=== PATIENT | male | born 1980 | race Two or more races ===

== ENCOUNTER 2018-01-23 07:31 | Emergency (ER) | payer BC, MEDICAID ==
[2018-01-23] MEDS ORDERED: cefTRIAXone 1,000 MG in Lidocaine 1% 4 ML IM ONE (07:38)
--- NOTE | 2018-01-23 07:41 | EDM.PDOC ---
ED HPI GENERAL MEDICAL PROBLEM - General Chief Complaint: Genitourinary Problem Stated Complaint: BLOOD IN URINE Time Seen by Provider: 01/23/18 07:36 - History of Present Illness INITIAL COMMENTS - FREE TEXT/NARRATIVE: HISTORY AND PHYSICAL: History of present illness: Patient 37-year-old male presents with a concern of dysuria and hematuria he states he had this 1 day states is no significant chance of STD and he's had none prior he denies back pain nausea vomiting fever chills. Review of systems: As per history of present illness and below otherwise all systems reviewed and negative. Past medical history: As per history of present illness and as reviewed below otherwise noncontributory. Surgical history: As per history of present illness and as reviewed below otherwise noncontributory. Social history: No reported history of drug or alcohol abuse. Family history: As per history of present illness and as reviewed below otherwise noncontributory. Physical exam: HEENT: Atraumatic, normocephalic, pupils reactive, negative for conjunctival pallor or scleral icterus, mucous membranes moist, throat clear, neck supple, nontender, trachea midline. Lungs: Clear to auscultation, breath sounds equal bilaterally, chest nontender. Heart: S1S2, regular, negative for clicks, rubs, or JVD. Abdomen: Soft, nondistended, nontender. Negative for masses or hepatosplenomegaly. Negative for costovertebral tenderness. Pelvis: Stable nontender. Genitourinary: Deferred. Rectal: Deferred. Extremities: Atraumatic, negative for cords or calf pain. Neurovascular unremarkable. Neuro: Awake, alert, oriented. Cranial nerves II through XII unremarkable. Cerebellum unremarkable. Motor and sensory unremarkable throughout. Exam nonfocal. Diagnostics: UA urine culture and sensitivity GC chlamydia Therapeutics: Rocephin 1 g IM Impression: #1 UTI Definitive disposition and diagnosis as appropriate pending reevaluation and review of above. urinary Pain Score (Numeric/FACES): 10 - Related Data Allergies Allergy/AdvReac Type Severity Reaction Status Date / Time Penicillins Allergy Other Verified 01/23/18 07:34 Home Meds: Home Meds . [No Known Home Meds] 01/23/18 [History] ED ROS GENERAL - Review of Systems Review Of Systems: ROS reveals no pertinent complaints other than HPI. ED EXAM, GENERAL - Physical Exam Exam: See Below (See dictation) Course - Vital Signs Last Recorded V/S: Last Vital Signs Temp 35.8 C 01/23/18 07:35 Pulse 109 H 01/23/18 07:35 Resp 20 01/23/18 07:35 BP 172/120 H 01/23/18 07:35 Pulse Ox 97 01/23/18 07:35 - Orders/Labs/Meds Orders: Active Orders 24 hr Category Date Time Status CHLAMYDIA AND GONORRHEA BY TMA Stat Lab 01/23/18 07:37 Ordered CULTURE URINE [RM] Stat Lab 01/23/18 07:37 Ordered UA W/MICROSCOPIC [URIN] Stat Lab 01/23/18 07:37 Ordered Meds: Medications Discontinued Medications Generic Name Dose Route Start Last Admin Trade Name Freq PRN Reason Stop Dose Admin Ceftriaxone Sodium 1,000 mg/ 4 mls @ 4 mls/sec 01/23/18 07:38 Lidocaine HCl IM 01/23/18 07:39 ONETIME ONE Departure - Departure Time of Disposition: 07:41 Disposition: Home, Self-Care 01 Condition: Good Clinical Impression: UTI, Urinary tract infectious disease - Discharge Information Additional Instructions: The following information is given to patients seen in the emergency department who are being discharged to home. This information is to outline your options for follow-up care. We provide all patients seen in our emergency department with a follow-up referral. The need for follow-up, as well as the timing and circumstances, are variable depending upon the specifics of your emergency department visit. If you don't have a primary care physician on staff, we will provide you with a referral. We always advise you to contact your personal physician following an emergency department visit to inform them of the circumstance of the visit and for follow-up with them and/or the need for any referrals to a consulting specialist. The emergency department will also refer you to a specialist when appropriate. This referral assures that you have the opportunity for followup care with a specialist. All of these measure are taken in an effort to provide you with optimal care, which includes your followup. Under all circumstances we always encourage you to contact your private physician who remains a resource for coordinating your care. When calling for followup care, please make the office aware that this follow-up is from your recent emergency room visit. If for any reason you are refused follow-up, please contact the [facility] emergency department at and asked to speak to the emergency department charge nurse. Doxycycline as prescribed although primary medical doctor call to schedule appointment return as needed as discussed - My Orders Last 24 Hours: My Active Orders 01/23/18 07:37 CHLAMYDIA AND GONORRHEA BY TMA Stat CULTURE URINE [RM] Stat UA W/MICROSCOPIC [URIN] Stat - Assessment/Plan Last 24 Hours: My Active Orders 01/23/18 07:37 CHLAMYDIA AND GONORRHEA BY TMA Stat CULTURE URINE [RM] Stat UA W/MICROSCOPIC [URIN] Stat
[2018-01-23] MEDS ORDERED: Lidocaine 1% 4 ML ONE (07:50)
== END 2018-01-23 08:46 | disposition home or self-care (01) ==
LOC: MW.ED 07:31
DX: N39.0 Urinary tract infection, site not specified (principal); Z88.0 Allergy status to penicillin
CPT/HCPCS: 81001; 87086; 87491; 87591; 96372; 99283; J0696; 87088; 87186; 99282

== ENCOUNTER 2018-03-21 17:59 | Emergency (ER) | payer OTHER, MEDICAID ==
--- NOTE | 2018-03-21 18:26 | EDM.PDOC ---
ED HPI GENERAL MEDICAL PROBLEM - General Chief Complaint: Upper Extremity Injury/Pain Stated Complaint: PAIN RT ARM Time Seen by Provider: 03/21/18 18:00 Source of Information: Reports: Patient History Limitations: Reports: No Limitations - History of Present Illness INITIAL COMMENTS - FREE TEXT/NARRATIVE: HISTORY AND PHYSICAL: History of present illness: Patient is a 37-year-old male who is brought to the emergency room with complaints of right elbow pain. He states while at work today they were adjusting some heavy equipment when a pin slipped and his body fell into the equipment, hitting his elbow. Since that time he has increased pain with full extension and flexion of the right elbow. He denies any numbness or tingling. Denies any previous injury or trauma to the affected extremity. Review of systems: As per history of present illness and below otherwise all systems reviewed and negative. Past medical history: As per history of present illness and as reviewed below otherwise noncontributory. Surgical history: As per history of present illness and as reviewed below otherwise noncontributory. Social history: No reported history of drug or alcohol abuse. Family history: As per history of present illness and as reviewed below otherwise noncontributory. Physical exam: General: Well-developed and well-nourished 37-year-old male. Alert and oriented. Nontoxic appearing and in no acute distress. HEENT: Atraumatic, normocephalic, pupils equal and reactive bilaterally, negative for conjunctival pallor or scleral icterus, mucous membranes moist, throat clear, neck supple, nontender, trachea midline. No drooling or trismus noted. No meningeal signs Lungs: Clear to auscultation, breath sounds equal bilaterally, chest nontender. Heart: S1S2, regular rate and rhythm without overt murmur Abdomen: Soft, nondistended, obese, nontender. Negative for masses. Negative for costovertebral tenderness. Pelvis: Stable nontender. Genitourinary: Deferred. Rectal: Deferred. Skin: Intact, warm, dry. No lesions or rashes noted. Extremities: Moves all extremities per self without deficits. Does have pain with palpation to the right posterior elbow and with complete extension of the right upper extremity. Strong radial pulses bilaterally. Capillary refill is less than 3 seconds. Strong and equal grasps to bilateral extremities. negative for cords or calf pain. Neurovascular unremarkable. Neuro: Awake, alert, oriented. Cranial nerves II through XII unremarkable. Cerebellum unremarkable. Motor and sensory unremarkable throughout. Exam nonfocal. Notes: X-ray shows moderate soft tissue swelling in the right mid and proximal forearm with increased density in the subcutaneous tissues likely related to the soft tissue injury. There is no evidence of acute fracture, dislocation or effusion. We discussed the limitations of x-ray and that we are unable to identify if there is ligament or tendon involvement at this time. We'll put him in a sling and give him some medication for pain. Encouraged him to follow-up with the orthopedic provider next week. He voices understanding and is agreeable to plan of care. He denies any further questions at this time. Diagnostics: Xray Therapeutics: Toradol, Sling Impression: Right Elbow Injury Plan: 1. Rest, ice, elevate the affected extremity. Please use the sling as directed. 2. Tylenol and/or ibuprofen as needed for pain management. A limited amount of [place] has been given to you for moderate to severe pain. This medication may cause drowsiness so do not take it while driving or needing to be functioning outside the house. 3. As we discussed, please follow-up with the orthopedic provider next week. Return to the ED as needed and as discussed. Definitive disposition and diagnosis as appropriate pending reevaluation and review of above. Onset: Today Duration: Hour(s): Location: Reports: Upper Extremity, Right Right Elbow Pain Score (Numeric/FACES): 3 - Related Data Allergies Allergy/AdvReac Type Severity Reaction Status Date / Time Penicillins Allergy Cannot Verified 03/21/18 18:12 Remember Home Meds: Home Meds . [No Known Home Meds] 01/23/18 [History] Past Medical History - Past Health History Medical/Surgical History: Denies Medical/Surgical History Social & Family History - Family History Family Medical History: Noncontributory - Tobacco Use Smoking Status *Q: Current Every Day Smoker Years of Tobacco use: 27 Packs/Tins Daily: 0.4 - Caffeine Use Caffeine Use: Reports: Energy Drinks - Recreational Drug Use Recreational Drug Use: No Review of Systems - Review of Systems Review Of Systems: ROS reveals no pertinent complaints other than HPI. ED EXAM, GENERAL - Physical Exam Exam: See Below (See dictation) Course - Vital Signs Last Recorded V/S: Last Vital Signs Temp 97.7 F 03/21/18 18:07 Pulse 90 03/21/18 18:07 Resp 16 03/21/18 18:07 BP 127/76 03/21/18 18:07 Pulse Ox 95 03/21/18 18:07 - Orders/Labs/Meds Orders: Active Orders 24 hr Category Date Time Status Elbow Min 3V Rt [CR] Stat Exams 03/21/18 18:20 Ordered DME for Discharge [COMM] Stat Oth 03/21/18 18:27 Ordered Meds: Medications Discontinued Medications Generic Name Dose Route Start Last Admin Trade Name Frekathia PRN Reason Stop Dose Admin Ketorolac Tromethamine 60 mg 03/21/18 18:27 Toradol IM 03/21/18 18:28 ONETIME ONE Departure - Departure Time of Disposition: 19:06 Disposition: Home, Self-Care 01 Clinical Impression: Injury of right elbow Qualifiers: Encounter type: initial encounter Qualified Code(s): S59.901A - Unspecified injury of right elbow, initial encounter - Discharge Information Referrals: PCP,None [Primary Care Provider] - Forms: ED Department Discharge Additional Instructions: The following information is given to patients seen in the emergency department who are being discharged to home. This information is to outline your options for follow-up care. We provide all patients seen in our emergency department with a follow-up referral. The need for follow-up, as well as the timing and circumstances, are variable depending upon the specifics of your emergency department visit. If you don't have a primary care physician on staff, we will provide you with a referral. We always advise you to contact your personal physician following an emergency department visit to inform them of the circumstance of the visit and for follow-up with them and/or the need for any referrals to a consulting specialist. The emergency department will also refer you to a specialist when appropriate. This referral assures that you have the opportunity for follow-up care with a specialist. All of these measure are taken in an effort to provide you with optimal care, which includes your follow-up. Under all circumstances we always encourage you to contact your private physician who remains a resource for coordinating your care. When calling for follow-up care, please make the office aware that this follow-up is from your recent emergency room visit. If for any reason you are refused follow-up, please contact the Emergency Department at and asked to speak to the emergency department charge nurse. [facility] [address], [place] [address] [facility] - [facility] Professional Building [address], [address] [place] [address] 1. Rest, ice, elevate the affected extremity. Please use the sling as directed. 2. Tylenol and/or ibuprofen as needed for pain management. A limited amount of [place] has been given to you for moderate to severe pain. This medication may cause drowsiness so do not take it while driving or needing to be functioning outside the house. 3. As we discussed, please follow-up with the orthopedic provider next week. Return to the ED as needed and as discussed. - My Orders Last 24 Hours: My Active Orders 03/21/18 18:20 Elbow Min 3V Rt [CR] Stat 03/21/18 18:27 DME for Discharge [COMM] Stat - Assessment/Plan Last 24 Hours: My Active Orders 03/21/18 18:20 Elbow Min 3V Rt [CR] Stat 03/21/18 18:27 DME for Discharge [COMM] Stat
[2018-03-21] MEDS ORDERED: Ketorolac 60 MG/2 ML SDV IM ONE (18:27)
--- NOTE | 2018-03-22 14:25 | CR ---
EXAM DATE: 03/21/18 PATIENT'S AGE: 37 Patient: GAEL BINGHAM Facility: [place], [place] Site . Site : 1980 Study: XRay Extremity Right elbow [id number]/[id number] 6:49:45 PM Ordering Physician: Doctor Garcia Final Report: INDICATION: Injury. TECHNIQUE: Three views right elbow. FINDINGS: Moderate soft tissue swelling in the right mid and proximal forearm with increased density in subcutaneous tissues likely related to soft tissue injury. Right palpable and visualized forearm otherwise negative without acute fracture , dislocation, or effusion. Dictated by Dean Glass MD @ Mar 21 2018 6:58PM (Electronic Signature) Report Signed by Proxy. ERIKA
== END 2018-03-21 19:20 | disposition home or self-care (01) ==
LOC: MW.ED 17:59
DX: S59.901A Unspecified injury of right elbow, initial encounter (principal); F17.210 Nicotine dependence, cigarettes, uncomplicated; Z88.0 Allergy status to penicillin; W22.8XXA Striking against or struck by other objects, initial encounter
CPT/HCPCS: 73080-26-RT; 73080-RT; 99283

== ENCOUNTER 2018-04-30 13:04 | Emergency (ER) | payer MEDICAID, OTHER ==
--- NOTE | 2018-04-30 13:44 | EDM.PDOC ---
ED HPI GENERAL MEDICAL PROBLEM - General Stated Complaint: SORE THROAT Time Seen by Provider: 04/30/18 13:42 Source of Information: Reports: Patient - History of Present Illness INITIAL COMMENTS - FREE TEXT/NARRATIVE: HISTORY AND PHYSICAL: History of present illness: [Sore throat for 2 days increasing in severity no difficulty with liquids some difficulty with solids Fever nausea vomiting chills sweats no drooling trismus or muffled voice ] Review of systems: As per history of present illness and below otherwise all systems reviewed and negative. Past medical history: As per history of present illness and as reviewed below otherwise noncontributory. Surgical history: As per history of present illness and as reviewed below otherwise noncontributory. Social history: No reported history of drug or alcohol abuse. Family history: As per history of present illness and as reviewed below otherwise noncontributory. Physical exam: HEENT: Atraumatic, normocephalic, pupils reactive, negative for conjunctival pallor or scleral icterus, mucous membranes moist, throat clear, neck supple, nontender, trachea midline. moderate erythema no exudates no meningeal sign Lungs: Clear to auscultation, breath sounds equal bilaterally, chest nontender. Heart: S1S2, regular, negative for clicks, rubs, or JVD. Abdomen: Soft, nondistended, nontender. Negative for masses or hepatosplenomegaly. Negative for costovertebral tenderness. Pelvis: Stable nontender. Genitourinary: Deferred. Rectal: Deferred. Extremities: Atraumatic, negative for cords or calf pain. Neurovascular unremarkable. Neuro: Awake, alert, oriented. Cranial nerves II through XII unremarkable. Cerebellum unremarkable. Motor and sensory unremarkable throughout. Exam nonfocal. Diagnostics: [Clinical/patient declines swab ] Therapeutics: [ Z-Asad ] Impression: Pharyngitis deffinitive disposition and diagnosis as appropriate pending reevaluation and review of above. - Related Data Allergies Allergy/AdvReac Type Severity Reaction Status Date / Time Penicillins Allergy Cannot Verified 03/21/18 18:12 Remember Home Meds: Home Meds . [No Known Home Meds] 01/23/18 [History] Past Medical History - Past Health History Medical/Surgical History: Denies Medical/Surgical History Social & Family History - Family History Family Medical History: Noncontributory - Caffeine Use Caffeine Use: Reports: Energy Drinks ED ROS GENERAL - Review of Systems Review Of Systems: See Below ED EXAM, GENERAL - Physical Exam Exam: See Below Course - Orders/Labs/Meds Orders: Active Orders 24 hr Category Date Time Status CULTURE STREP A CONFIRMATION [RM] Stat Lab 04/30/18 13:27 Results STREP SCRN A RAPID W CULT CONF [RM] Stat Lab 04/30/18 13:27 Results Departure - Departure Time of Disposition: 13:43 Disposition: Home, Self-Care 01 Condition: Good Clinical Impression: Pharyngitis - Discharge Information Referrals: PCP,None [Primary Care Provider] - Additional Instructions: The following information is given to patients seen in the emergency department who are being discharged to home. This information is to outline your options for follow-up care. We provide all patients seen in our emergency department with a follow-up referral. The need for follow-up, as well as the timing and circumstances, are variable depending upon the specifics of your emergency department visit. If you don't have a primary care physician on staff, we will provide you with a referral. We always advise you to contact your personal physician following an emergency department visit to inform them of the circumstance of the visit and for follow-up with them and/or the need for any referrals to a consulting specialist. The emergency department will also refer you to a specialist when appropriate. This referral assures that you have the opportunity for follow-up care with a specialist. All of these measure are taken in an effort to provide you with optimal care, which includes your follow-up. Under all circumstances we always encourage you to contact your private physician who remains a resource for coordinating your care. When calling for follow-up care, please make the office aware that this follow-up is from your recent emergency room visit. If for any reason you are refused follow-up, please contact the [facility] emergency department at and asked to speak to the emergency department charge nurse. - My Orders Last 24 Hours: My Active Orders 04/30/18 13:27 CULTURE STREP A CONFIRMATION [RM] Stat STREP SCRN A RAPID W CULT CONF [RM] Stat - Assessment/Plan Last 24 Hours: My Active Orders 04/30/18 13:27 CULTURE STREP A CONFIRMATION [RM] Stat STREP SCRN A RAPID W CULT CONF [RM] Stat
== END 2018-04-30 14:11 | disposition home or self-care (01) ==
LOC: MW.ED 13:04
DX: J02.9 Acute pharyngitis, unspecified (principal); Z88.0 Allergy status to penicillin
CPT/HCPCS: 87081; 87880-QW; 99283